=== PATIENT | male | born 1955 | race African-American/Black ===

== ENCOUNTER 2023-01-23 05:20 | Day surgery (SDC) | payer OTHER ==
[2023-01-18 15:59] VITALS: BMI 25.7
[2023-01-23] MEDS ORDERED: BUPIVACAINE HCL/PF 0.25% (2.5MG/ML) 10 ML VIAL ONE (07:11)
[2023-01-23] MEDS ORDERED: KETAMINE HCL 500 MG/10 ML VIAL ONE (07:24)
[2023-01-23] MEDS ORDERED: MIDAZOLAM HCL 2 MG/2 ML SINGLE DOSE VIAL ONE (07:24)
[2023-01-23] MEDS ORDERED: PROPOFOL 40 ML ONE (07:24)
[2023-01-23] MEDS ORDERED: ROCURONIUM BROMIDE 50 MG/5 ML SYRINGE ONE ×2 (07:25→10:22)
[2023-01-23] MEDS ORDERED: BUPIVACAINE HCL/PF 0.25% (2.5MG/ML) 10 ML VIAL IJ ONE ×2 (07:30→08:46)
[2023-01-23] MEDS ORDERED: ceFAZolin SODIUM 1 GM VIAL IVPB ONE ×2 (07:30→08:15)
[2023-01-23] MEDS ORDERED: PROPOFOL 20 ML ONE (09:05)
[2023-01-23 14:35] VITALS: RESP 20; TEMP 98
[2023-01-23 15:37] VITALS: BP 110/70; PULSE 71
== END 2023-01-23 14:12 | disposition home or self-care (01) ==
LOC: JASU-SURG 05:20
PROVIDERS: ATTEND Surgery
PROC: 8E0W4CZ Robotic Assisted Procedure of Trunk Region, Percutaneous Endoscopic Approach (ICD-10-PCS; 2023-01-23)
PROC: 0YUA4JZ Supplement Bilateral Inguinal Region with Synthetic Substitute, Percutaneous Endoscopic Approach (ICD-10-PCS; principal; 2023-01-23 08:00)
DX: K40.20 Bilateral inguinal hernia, without obstruction or gangrene, not specified as recurrent (principal)
CPT/HCPCS: 49650; S2900; 94760; C1781